=== PATIENT | male | born 1995 | race Caucasian/White ===

== ENCOUNTER 2018-11-15 09:23 | Emergency (ER) | payer BC ==
--- NOTE | 2018-11-15 09:59 | ER Document Report ---
ED Psych Disorder / Suicide - General Chief Complaint: Suicidal Ideation Stated Complaint: PSYCH Time Seen by Provider: 11/15/18 09:49 Primary Care Provider: SALIMA CONTRERAS [NO LOCAL MD] - Follow up as needed Mode of Arrival: Ambulatory Information source: Patient, Relative Notes: History of Present Illness Chief Complaint: Suicidal attempt 23 years old male with a history of PTSD, this morning tied a tourniquet around his neck to kill himself. At the last moment he took it off. Subsequently was brought in by the . States that he does not want to live anymore. Denies any constitutional symptoms No homicidal ideation No acute psychotic features History obtained from patient Symptoms began: Past few days Onset: Gradual Timing: Constant Quality: Severe Intensity: Moderate to severe Location: Generalized Radiation: None Migration: None Aggravating factors: None Relieving factors: None Review of Systems: All other systems negative as reviewed. CONSTITUTIONAL No Fever. EYES No eye pain. ENT No sore throat CARDIOVASCULAR No chest pain. RESPIRATORY No SOB. GI No abdominal pain, no vomiting, no diarrhea. GENITOURINARY No dysuria. SKIN No rash. NEUROLOGIC No headache. MUSCULOSKELETAL No back pain. Physical Exam CONSTITUTIONAL Vital signs reviewed, Patient has normal respiratory rate, Well appearing, Patient appears comfortable, normal stature. HEAD Atraumatic, Normocephalic. EYES Eyes are normal to inspection. ENT Ears normal to inspection, Nose examination normal. NECK No jugular venous distention. RESPIRATORY CHEST Breath sounds normal, No respiratory distress. CARDIOVASCULAR RRR, No murmurs, Normal S1 S2, No rub, No gallop. ABDOMEN Abdomen is nontender, No masses, Bowel sounds normal, No distension, No peritoneal signs. BACK Normal inspection. UPPER EXTREMITY Inspection normal. LOWER EXTREMITY Inspection [place]. NEURO No focal motor deficits. SKIN Skin is warm, Skin is dry, Skin is normal color. PSYCHIATRIC Normal affect. Suicidal ideation, attempt, depression, PTSD TRAVEL OUTSIDE OF THE [place] IN LAST 30 DAYS: No - HPI Notes: Dictated - Related Data Allergies/Adverse Reactions: No Known Allergies Allergy (Verified 11/15/18 09:39) Past Medical History - Social History Smoking Status: Current Every Day Smoker Chew tobacco use (# tins/day): No Frequency of alcohol use: Social Drug Abuse: Marijuana Family History: Reviewed & Not Pertinent Patient has suicidal ideation: Yes Patient has homicidal ideation: No Review of Systems - Review of Systems Notes: Dictated Physical Exam - Vital signs Vitals: Temp Pulse Resp BP Pulse Ox 98.5 F 106 H 16 142/97 H 98 11/15/18 09:34 11/15/18 09:34 11/15/18 09:34 11/15/18 09:34 11/15/18 09:34 - Notes Notes: Dictated Course - Vital Signs Vital signs: Temp Pulse Resp BP Pulse Ox 98.5 F 106 H 16 142/97 H 98 11/15/18 09:34 11/15/18 09:34 11/15/18 09:34 11/15/18 09:34 11/15/18 09:34 - Laboratory Result Diagrams: 11/15/18 10:11 11/15/18 10:11 Laboratory results interpreted by me: 11/15/18 11/15/18 10:11 10:11 Urine Urobilinogen 2.0 H Salicylates < 1.0 L Acetaminophen < 10 L Discharge - Discharge Clinical Impression: Suicidal behavior with attempted self-injury, PTSD (post-traumatic stress disorder) Condition: Fair Disposition: ADMITTED INPATIENT Referrals: LOCALMD,NO [NO LOCAL MD] - Follow up as needed
[2018-11-15 10:30] LABS: ABSOLUTE EOSINOPHILS # (AUTO) 0.1 10^3/uL (0.0-0.6); ABSOLUTE LYMPHOCYTES (AUTO) 1.5 10^3/uL (0.5-4.7); ABSOLUTE MONOCYTES (AUTO) 0.5 10^3/uL (0.1-1.4); ABSOLUTE NEUT (AUTO) 6.9 10^3/uL (1.7-8.2); BASOPHILS % (AUTO) 0.4 % (0-2); EOSINOPHILS % (AUTO) 0.9 % (0-6); HEMATOCRIT 42.8 % (37.9-51.0); HEMOGLOBIN 14.7 g/dL (13.5-17.0); LYMPHOCYTES % (AUTO) 16.4 % (13-45); MEAN CORPUSCULAR HEMOGLOBIN 31.1 pg (27.0-33.4); MEAN CORPUSCULAR HGB CONC 34.3 g/dL (32.0-36.0); MEAN CORPUSCULAR VOLUME 91 fl (80-97); PLATELET COUNT 293 10^3/uL (150-450); RED BLOOD COUNT 4.71 10^6/uL (4.35-5.55); RED CELL DISTRIBUTION WIDTH 11.8 % (11.5-14.0); SEGMENTED NEUTROPHILS % (AUTO) 76.3 % (42-78); TOTAL CELLS COUNTED % (AUTO) 100 %
[2018-11-15 10:52] LABS: APPEARANCE,URINE CLEAR; BILIRUBIN,URINE NEGATIVE (NEGATIVE); COLOR,URINE YELLOW; GLUCOSE, URINE NEGATIVE (NEGATIVE); KETONES,URINE NEGATIVE (NEGATIVE); LEUKOCYTE ESTERASE,URINE NEGATIVE (NEGATIVE); NITRITE,URINE NEGATIVE (NEGATIVE); PROTEIN,URINE NEGATIVE (NEGATIVE); URINE SPECIFIC GRAVITY 1.018
[2018-11-15 10:53] LABS: ALBUMIN 4.8 g/dL (3.5-5.0); ALKALINE PHOSPHATASE 48 U/L (38-126); ANION GAP 11 (5-19); ASPARTATE AMINO TRANSFERASE 22 U/L (17-59); BILIRUBIN,DIRECT 0.1 mg/dL (0.0-0.4); BILIRUBIN,TOTAL 0.4 mg/dL (0.2-1.3); BLOOD UREA NITROGEN 9 mg/dL (7-20); CALCIUM 9.6 mg/dL (8.4-10.2); CARBON DIOXIDE 27 mmol/L (22-30); CHLORIDE 102 mmol/L (98-107); GLUCOSE 105 mg/dL (75-110); POTASSIUM 3.7 mmol/L (3.6-5.0); TOTAL PROTEIN 7.7 g/dL (6.3-8.2)
[2018-11-15 10:55] LABS: ACETAMINOPHEN < 10 ug/mL (10-30); ALCOHOL < 10 mg/dL (NONE DETECTED); SALICYLATE < 1.0 mg/dL (2.0-20.0)
[2018-11-15 11:21] LABS: URINE AMPHETAMINES SCREEN NEGATIVE; URINE BARBITURATES SCREEN NEGATIVE; URINE BENZODIAZEPINES SCREEN NEGATIVE; URINE COCAINE SCREEN NEGATIVE; URINE MARIJUANA (THC) SCREEN UNCONFIRMED POSITIVE; URINE METHADONE SCREEN NEGATIVE; URINE PHENCYCLIDINE SCREEN NEGATIVE
--- NOTE | 2018-11-15 14:34 | PSYCHOLOGICAL NOTE ---
Psych Note - Psych Note Date seen by psych provider: 11/15/18 Time seen by psych provider: 12:49 - Chart review at 1249. Psych Note: Presenting Problem: SI with attempt (put tourniquet around his neck, stopped when ex intervened) and wrote letters (2 page to love of life, 1 page to family/friends). UDS positive for Cannabis. Reported Hx of PTSD. Patient not seen in ED for behavioral health reasons previously. Diagnosis: SI attempt via putting tourniquet around neck, wrote letters Depressive Disorder Posttraumatic Stress Disorder by Hx Impression/Plan: Recommendation for IVC given SI attempt via tourniquet around his neck and letters written to love of life and then family/friends. Consulted with Dr. Rizvi regarding the management and care of patient. ED Physician in agreement with recommendations. Patient accepted to [facility]. Will move forward with that placement.
[2018-11-15 16:00] VITALS: BP 129/84
--- NOTE | 2018-11-15 16:15 | ER Document Report ---
Doctor's Note Notes: 11/15/18 16:15 Patient reassessed just now. Patient is sitting comfortably in the room with his significant other. He denies any problems or concerns, he is stable for transfer.
--- NOTE | 2018-11-16 11:31 | EKG REPORT ---
SEVERITY:- ABNORMAL ECG - SINUS RHYTHM NONSPECIFIC T ABNORMALITIES, INFERIOR LEADS : Confirmed by: Cara Mckoy 16-Nov-2018 11:30:24
== END 2018-11-15 16:15 | disposition other institution (70) ==
LOC: ER 09:23
DX: T14.91XA Suicide attempt, initial encounter (principal); X83.8XXA Intentional self-harm by other specified means, initial encounter; F43.10 Post-traumatic stress disorder, unspecified; F32.9 Major depressive disorder, single episode, unspecified; F17.200 Nicotine dependence, unspecified, uncomplicated; F12.10 Cannabis abuse, uncomplicated
CPT/HCPCS: 36415; 80053; 80307; 81001; 85025; 93005; 93010; 99285